=== PATIENT | male | born 1980 | race Caucasian/White ===

== ENCOUNTER 2016-08-18 20:15 | Emergency (ER) | payer OTHER ==
[2016-08-18 20:18] VITALS: BP 160/87
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
--- NOTE | 2016-08-18 22:03 | RAD ---
INDICATION: Pain and swelling at the radial margin following injury. COMPARISON: None. TECHNIQUE: AP, lateral, and oblique views LEFT wrist. AP and lateral views LEFT hand. REPORT: Negative for fracture or dislocation. Polyarticular mild osteophytosis including at the distal radioulnar joint and interphalangeal joints. Approximate 30 degrees flexion deformity at the third distal interphalangeal joint. Mild nonfocal soft tissue swelling. IMPRESSION: 1. No evidence for fracture at the wrist or hand. 2. Polyarticular mild osteoarthritis. 3. Flexion deformity at the third distal interphalangeal joint for which clinical correlation is needed. 4. Mild nonfocal soft tissue swelling.
== END 2016-08-18 22:24 | disposition home or self-care (01) ==
LOC: ED 20:15
DX: S60.032A Contusion of left middle finger without damage to nail, initial encounter (principal); M20.012 Mallet finger of left finger(s); M25.531 Pain in right wrist; X58.XXXA Exposure to other specified factors, initial encounter; Y93.9 Activity, unspecified; Y92.89 Other specified places as the place of occurrence of the external cause; Y99.9 Unspecified external cause status
CPT/HCPCS: 99281

== ENCOUNTER 2018-12-05 07:31 | Emergency (ER) | payer OTHER ==
[2018-12-05 08:08] LABS: ABS Basophils 0 10^3/ul (0-0.2); ABS Eosinophils 0 10^3/ul (0-0.6); ABS Lymphocytes 1.4 10^3/ul (1.0-4.8); ABS Monocytes 0.6 10^3/ul (0-0.8); ABS Neutrophils 6.1 10^3/ul (1.5-7.7); ABS Nucleated RBC 0 10^3/ul; Eosinophil % 0.2 %; Hematocrit 44 % (36-46); Hemoglobin 15.1 g/dL (14.0-18.0); Lymphocyte % 17.4 %; Mean Corpuscular HGB Conc 34 g/dL (31-36); Mean Corpuscular Hemoglobin 30 pg (27-31); Mean Corpuscular Volume 88 fL (80-94); Mean Platelet Volume 7.5 fL (7.4-10.4); Nucleated Red Blood Cells % 0; Platelet Count 244 10^3/uL (150-450); Red Blood Count 5.04 10^6 /uL (4.18-5.48); Red Cell Distribution Width 13 % (10.5-15); White Blood Count 8.1 10^3/uL (3.5-10.8)
[2018-12-05 08:23] LABS: Albumin 4.3 g/dL (3.2-5.2); Albumin/Globulin Ratio 1.7 (1-3); BUN/Creatinine Ratio 9.6 (8-20); Calcium 8.9 mg/dL (8.6-10.3); EGFR African American 109.3 (>60); EGFR Non-African American 90.3 (>60); Globulin 2.5 g/dL (2-4); Potassium 3.8 mmol/L (3.5-5.0); Total Bilirubin 0.3 mg/dL (0.2-1.0); Total Protein 6.8 g/dL (6.4-8.9)
[2018-12-05] MEDS ORDERED: Iohexol 300* (CONTRAST) 10 ML SDV IV ONE (08:31)
[2018-12-05 08:38] LABS: Urine Appearance Clear; Urine Bilirubin Negative (Negative); Urine Blood Negative (Negative); Urine Color Colorless; Urine Glucose Negative (Negative); Urine Ketones Negative (Negative); Urine Nitrite Negative (Negative); Urine Protein Negative (Negative); Urine Specific Gravity 1.002 (1.010-1.030); Urine Urobilinogen Negative (Negative)
[2018-12-05 08:41] LABS: INR 0.97 (0.82-1.09)
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
[2018-12-05] MEDS ORDERED: Ketorolac INJ* 30 MG/ML 1 ML VIAL IV PUSH ONE (09:34)
[2018-12-05 10:52] VITALS: BP 142/92
== END 2018-12-05 10:49 | disposition home or self-care (01) ==
LOC: ED 07:31
DX: S20.219A Contusion of unspecified front wall of thorax, initial encounter (principal); V47.5XXA Car driver injured in collision with fixed or stationary object in traffic accident, initial encounter; Y92.9 Unspecified place or not applicable
CPT/HCPCS: 36415; 71045; 71260; 74177; 80053; 81003; 84484; 85025; 85610; 93005; 96374; 99283; J1885; Q9967